=== PATIENT | female | born 1945 | race Caucasian/White ===

== ENCOUNTER 2019-01-28 08:38 | Emergency (ER) | payer MEDICARE ==
--- NOTE | 2019-01-28 08:47 | UC ---
Hypertension HPI - HPI Summary HPI Summary: 73 yo female presents with concerns about her blood pressure. She tells me that she has HTN and has been on 25mg of toprol daily for years - takes this at night. About a month or so ago her PCP advised her to take her blood pressures at home and increase her toprol to one and half tabs daily if they were still elevated. Pt has been taking her blood pressure at home and noticed they were around 140s/high 80s, but did not increase her toprol as instructed because she "didn't trust the doctor". Last night she was getting ready for bed and developed a headache. She gets headaches from time to time, but not usually at night - which concerned her. She decided to check her blood pressure due to this and noted it to be 155/90. This, admittedly, made her anxious. She then developed some tightness in her right upper arm and this made her more nervous. Did not sleep well due to this. This morning she states that her headache is much improved, but is worried about her blood pressure being high and that she had is or having a "stroke". She denies dizziness, vision changes, weakness, numbness, SOB, chest pain, palpitations, abdominal pain, n/v. - History of Current Complaint Stated Complaint: BLOOD PRESSURE Time Seen by Provider: 01/28/19 08:47 Hx Obtained From: Patient Onset/Duration: Gradual Onset Alleviating Factor(s): Rest - Allergies/Home Medications Allergies/Adverse Reactions: Allergies Allergy/AdvReac Type Severity Reaction Status Date / Time tetracycline Allergy Unknown Verified 01/28/19 08:50 Reaction Details Home Medications: Home Medications Metoprolol Succinate [Toprol Xl] 25 mg PO DAILY 01/28/19 [History Confirmed 09/08] PMH/Surg Hx/FS Hx/Imm Hx Endocrine History: Dyslipidemia Cardiovascular History: Hypertension Review of Systems All Other Systems Reviewed And Are Negative: Yes Constitutional: Positive: Negative Skin: Positive: Negative Eyes: Positive: Negative Respiratory: Positive: Negative Cardiovascular: Positive: Negative Gastrointestinal: Positive: Negative Genitourinary: Positive: Negative Neurovascular: Positive: Negative Neurological: Positive: Headache Psychological: Positive: Negative Physical Exam - Summary Physical Exam Summary: GENERAL: NAD. Mildly anxious - tearful SKIN: No rashes, sores, ulcers, masses, lesions. HEENT: Head: AT/NC. Eyes: PERRLA. EOM intact. NECK: Supple. Nontender. FROM CHEST: CTAB. No r/r/w. No accessory muscle use. Breathing comfortably and in no resp distress. CV: RRR. Without m/r/g. Pulses intact. Brisk cap refill. No JVD or carotid bruit. ABDOMEN: Soft. NTTP. Bowel sounds present MSK: FROM in B/L UEs and LEs with symmetric strength. NEURO: A&Ox3. 3 word recall, remote, recent memory, ability to follow 2-step directions, and attention intact. CN: II: Peripheral montgomery intact. Vision normal. III, IV, : EOMI. No nystagmus. PERRLA. V: Sensations intact and symmetric. Opens mouth and clenches teeth. VII: No facial asymmetry. Forehead wrinkles. Grins, shuts eyes, frowns, puffs cheeks. VIII: Hearing intact to finger rub. IX, X: Swallows and coughs. Uvula midline. XI: Shrugs shoulders. Turns head against resistance. XII: No tongue deviation [id number] are intact. Gait with normal base. Romberg: maintains balance, no pronator drift. Normal speech. No facial drooping. PSYCH: Age appropriate behavior. Triage Information Reviewed: Yes Vital Signs: Vital Signs: Temp Pulse Resp BP Pulse Ox 97.9 F 77 18 196/91 97 01/28/19 08:41 01/28/19 08:41 01/28/19 08:41 01/28/19 08:41 01/28/19 08:41 Vital Signs: Temp Pulse Resp BP Pulse Ox 97.9 F 77 18 160/80 97 01/28/19 08:41 01/28/19 08:41 01/28/19 08:41 01/28/19 09:20 01/28/19 08:41 Vital Signs Reviewed: Yes National Institutes [employer] Health - NIH Scale Level of Consciousness: Alert/Keenly Responsive Ask Patient the Month and His/Her Age: Both Correct Ask Pt to Open/Close Eyes and Insurance Solicitor/Release Non-Paretic Hand: Both Correctly Best Gaze (Only Horizontal Eye Movement): Normal Visual Field Testing: No Visual Loss Facial Paresis-Pt to Smile & Close Eyes or Grimace Symmetry: Normal/Symmetrical Motor Function - Right Arm: No Drift-Holds 10 Seconds Motor Function - Left Arm: No Drift-Holds 10 Seconds Motor Function - Right Leg: No Drift-Holds 10 Seconds Motor Function - Left Leg: No Drift-Holds 10 Seconds Limb Ataxia-Must be out of Proportion to Weakness Present: Absent Sensory (Use Pinprick to Test Arms/Legs/Trunk/Face): Normal Best Language (Describe Picture, Name Items): No Aphasia Dysarthria (Read Several Words): Normal Extinction and Inattention: No Abnormality Total Score: 0 Hypertension Course/Dx - Course Course Of Treatment: EKG NSR RBBB 73bpm. No ST changes as read by Dr. Kruse. Discussed EKG and normal exam with pt. I suspect her headache last night was due to her elevated BP, which was further exacerbated by anxiety surrounding this. After discussing this was pt - she became noticably more calm and BP was rechecked and found to be 160/80. I advised her to increase her Toprol as previously instructed - one and a half tab daily. She says that she plans to f/ u with her PCP this week. Strongly encouraged that if her headache returns or if she develops as weakness, numbness, dizziness, vision changes, SOB, or chest pain to go to the ED. She voiced understanding and that she was feeling much better. - Differential Dx/Diagnosis Provider Diagnosis: Hypertension, Headache Discharge - Sign-Out/Discharge Documenting (check all that apply): Patient Departure All imaging exams completed and their final reports reviewed: No Studies - Discharge Plan Condition: Stable Disposition: HOME Patient Education Materials: Chronic Hypertension (ED) Referrals: Louann Kline MD [Primary Care Provider] - Additional Instructions: If you develop a fever, shortness of breath, chest pain, new or worsening symptoms - please call your PCP or go to the ED. 1) Please start taking your metoprolol one and a half tabs daily 2) Please follow up with your Primary doctor as soon as possible for further blood pressure management - Billing Disposition and Condition Condition: STABLE Disposition: Home
[2019-01-28 09:21] VITALS: BP 160/80
== END 2019-01-28 09:25 | disposition home or self-care (01) ==
LOC: UCEAST 08:38
DX: I10 Essential (primary) hypertension (principal); R51 Headache; Z88.1 Allergy status to other antibiotic agents
CPT/HCPCS: 93005; 99201; G0463

== ENCOUNTER 2021-11-26 11:45 | Observation (INO) ==
[2021-12-17] MEDS ORDERED: Lactated Ringers 1000 ml BAG 1,000 ML IV SCH ×2 (06:00→12:00)
[2021-12-17] MEDS ORDERED: Buffered Lidocaine 1% SYRIN 1 ml INTRADERM ONE ×2 (06:00→07:37)
[2021-12-17] MEDS ORDERED: Ketamine HCL 50 mg/ml 10 ml VIAL (500 MG) ONE (07:36)
[2021-12-17] MEDS ORDERED: ceFAZolin 2 GM PREMIX 2 GM/50 ML BAG ONE (07:37)
[2021-12-17] MEDS ORDERED: Propofol 10 MG/ML 20 ML BTL ONE (07:42)
[2021-12-17] MEDS ORDERED: Lidocaine 2% PF 5 ML VIAL ONE (07:43)
[2021-12-17] MEDS ORDERED: Phenylephrine 40 mcg/mL 10mL (400mcg) SYRINGE ONE (07:52)
[2021-12-17] MEDS ORDERED: Ropivacaine 5 MG/ML 20 ML VIAL 0.5% (100 MG) ONE (08:22)
[2021-12-17] MEDS ORDERED: Midazolam 2 mg/2 ml VIAL 1 mg/ml 2 ml VIAL (2 mg) ONE (08:29)
[2021-12-17] MEDS ORDERED: Lidocaine 1% MPF 5 ML VIAL ONE (08:33)
[2021-12-17] MEDS ORDERED: ROPIVACAINE 5 MG/ML 30 ML BTL (0.5%) ONE (08:33)
[2021-12-17] MEDS ORDERED: Rocuronium 50 mg VIAL 10 mg/ml 5 ml VIAL (50 mg) ONE (09:30)
[2021-12-17] MEDS ORDERED: Bupivacaine 0.5% SDV PF 30ML VIAL ONE (09:54)
[2021-12-17] MEDS ORDERED: Acetaminophen IV 1 GM/100ML VI 100 ML ONE (10:00)
[2021-12-17] MEDS ORDERED: fentaNYL 100 mcg/2 ml 50 MCG/ML VIAL IV PRN (10:05)
[2021-12-17] MEDS ORDERED: Acetaminophen IV 1 GM/100ML 100 ML IV PRN (10:05)
[2021-12-17] MEDS ORDERED: Ondansetron 4 mg VIAL 2 MG/ML 2 ml VIAL IV PRN ×2 (10:05→11:16)
[2021-12-17] MEDS ORDERED: Naloxone 0.4 mg VIAL 0.4 mg/ml 1 ml VIAL IV PRN (10:05)
[2021-12-17] MEDS ORDERED: DiMENhydriNATE IV 50 mg/ml 1 ml VIAL IV PUSH PRN (10:05)
[2021-12-17] MEDS ORDERED: HYDROmorphone 1 MG/1 ML SYRINGE IV PRN (10:05)
[2021-12-17] MEDS ORDERED: Lactulose 30 ml UDC PO PRN (11:16)
[2021-12-17] MEDS ORDERED: Magnesium Hydroxide LIQ 30 ML UDC PO PRN (11:16)
[2021-12-17] MEDS ORDERED: diPHENhydraMINE 25 mg TAB PO PRN (11:16)
[2021-12-17] MEDS ORDERED: Morphine 2 MG/ML SYRINGE IV PRN (11:16)
[2021-12-17] MEDS ORDERED: Ondansetron ODT 4 mg TAB 4 MG TAB PO PRN (11:16)
[2021-12-17] MEDS ORDERED: diPHENhydraMINE IV 50 MG/ML 1 ml VIAL (BENADRYL) IV PRN (11:16)
[2021-12-17] MEDS ORDERED: Ondansetron 4 mg VIAL 2 MG/ML 2 ml VIAL ONE (11:43)
[2021-12-17] MEDS: ceFAZolin 1 GM ADVAN 1 GM in NS 0.9% 50 ML 50 ML IVPB SCH (16:42)
[2021-12-17] MEDS ORDERED: Scopolamine PATCH Remove NOTE PATCH OFF PRN (19:49)
[2021-12-17] MEDS: Magnesium Hydroxide LIQ 30 ML UDC PO SCH (21:08)
[2021-12-18] MEDS ORDERED: Prochlorperazine 5 mg/ml 2 ml VIAL (10 mg) IV PRN (00:56)
[2021-12-18] MEDS: ceFAZolin 1 GM ADVAN 1 GM in NS 0.9% 50 ML 50 ML IVPB SCH ×2 (01:08→08:42)
[2021-12-18 06:50] LABS: Hematocrit 32 % (35-47); Hemoglobin 11.1 g/dL (12.0-16.0); Platelet Count 192 10^3/uL (150-450)
[2021-12-18 07:08] LABS: Calcium 9.2 mg/dL (8.6-10.3); Potassium 4.7 mmol/L (3.5-5.0); eGFR CKD-EPI 65.3 (>60)
[2021-12-18] MEDS: Magnesium Hydroxide LIQ 30 ML UDC PO SCH (08:44)
[2021-12-18] MEDS ORDERED: Vitamin THERAPEUTIC TAB PO SCH (09:00)
[2021-12-18 12:15] VITALS: BP 129/62
== END 2021-12-18 13:35 | disposition home or self-care (01) ==
LOC: AA 12-17 07:17 → INTOOBSV 12-17 07:17 → SSU 12-17 14:19
PROVIDERS: ADMIT Orthopaedic Surgery Adult Reconstructive Orthopaedic Surgery; ATTEND Orthopaedic Surgery Adult Reconstructive Orthopaedic Surgery